=== PATIENT | male | born 1950 | race Caucasian/White ===

== ENCOUNTER 2022-10-22 07:56 | Day surgery (SDC) | payer OTHER, BC ==
[2022-10-18 12:02] VITALS: BMI 28.1
[2022-10-22] MEDS ORDERED: LIDOCAINE HCL/PF 2% SDV 5ML VIAL ONE (08:17)
[2022-10-22] MEDS ORDERED: PROPOFOL 80 ML ONE (08:17)
[2022-10-22 09:46] VITALS: PULSE 80; RESP 18
[2022-10-22 10:26] VITALS: BP 112/70; TEMP 97.7
== END 2022-10-22 10:26 | disposition home or self-care (01) ==
LOC: FASU-ENDO 07:56
PROVIDERS: ATTEND Internal Medicine Gastroenterology
PROC: 0DJD8ZZ Inspection of Lower Intestinal Tract, Via Natural or Artificial Opening Endoscopic (ICD-10-PCS; principal; 2022-10-22 09:13)
DX: Z12.11 Encounter for screening for malignant neoplasm of colon (principal); Z86.010 Personal history of colon polyps